=== PATIENT | male | born 1960 | race Caucasian/White ===

== ENCOUNTER 2016-08-20 17:54 | Emergency (ER) | payer BC ==
[2016-08-20] MEDS ORDERED: ONDANSETRON 4 MG TAB.RAPDIS PO ONE (18:50)
[2016-08-20] MEDS ORDERED: MORPHINE SULFATE 10 MG/ML INJ IM ONE (18:51)
--- NOTE | 2016-08-20 18:54 | ER Document Report ---
ED Medical Screen (RME) - General Chief Complaint: Abdominal Pain Stated Complaint: STOMACH PAIN Notes: Patient says that she's been experiencing severe mid abdominal pain since about 7 AM this morning. He had a bowel movement about 5 AM and felt well at that time, but then experienced the onset of this pain primarily in the mid abdomen area which has persisted all day. He's had a couple of episodes where his been passing some gas but that has not helped. Has not had any vomiting. Has not seen blood in his stools. May have had slight fever. Sweating. Patient has had gastric bypass surgery in the year 2007. Has not had any complications of that procedure. No other abdominal surgical procedures. Cannot take NSAIDS. Patient is allergic to Aleve. TRAVEL OUTSIDE OF THE [place] IN LAST 30 DAYS: No - Related Data Allergies/Adverse Reactions: acetaminophen [From Darvocet-N 100] Allergy (Mild, Verified 08/20/16 18:14) Hives propoxyphene napsylate [From Darvocet-N 100] Allergy (Mild, Verified 08/20/16 18 :14) Hives naproxen [From Aleve] Allergy (Verified 08/20/16 18:44) Home Medications: Current Home Medications Levothyroxine Sodium 100 mcg PO DAILY 08/20/16 [History] Past Medical History Renal/ Medical History: Denies: Hx Peritoneal Dialysis Past Surgical History: Reports: Hx Orthopedic Surgery - knee, shoulder - Immunizations Hx Diphtheria, Pertussis, Tetanus Vaccination: Yes Physical Exam - Vital signs Vitals: Temp Pulse Resp BP Pulse Ox 99.9 F 112 H 20 144/88 H 96 08/20/16 18:12 08/20/16 18:12 08/20/16 18:12 08/20/16 18:12 08/20/16 18:12 Course - Vital Signs Vital signs: Temp Pulse Resp BP Pulse Ox 99.9 F 112 H 20 144/88 H 96 08/20/16 18:12 08/20/16 18:12 08/20/16 18:12 08/20/16 18:12 08/20/16 18:12
[2016-08-20] MEDS ORDERED: MORPHINE SULFATE 10 MG/ML INJ IV PRN (19:30)
[2016-08-20] MEDS ORDERED: NORMAL SALINE 1000 ML 1,000 ML IV ONE (19:30)
[2016-08-20 19:31] LABS: ABSOLUTE EOSINOPHILS # (AUTO) 0.1 10^3/uL (0.0-0.6); ABSOLUTE LYMPHOCYTES (AUTO) 0.6 10^3/uL (0.5-4.7); ABSOLUTE MONOCYTES (AUTO) 0.4 10^3/uL (0.1-1.4); ABSOLUTE NEUT (AUTO) 6.4 10^3/uL (1.7-8.2); BASOPHILS % (AUTO) 0.3 % (0-2); EOSINOPHILS % (AUTO) 0.9 % (0-6); HEMATOCRIT 49.8 % (37.9-51.0); HEMOGLOBIN 17.2 g/dL (13.5-17.0); HGB HCT DIFFERENCE 1.8; LYMPHOCYTES % (AUTO) 7.7 % (13-45); MEAN CORPUSCULAR HEMOGLOBIN 31.4 pg (27.0-33.4); MEAN CORPUSCULAR HGB CONC 34.6 g/dL (32.0-36.0); MEAN CORPUSCULAR VOLUME 91 fl (80-97); MONOCYTES % (AUTO) 5.4 % (3-13); RED BLOOD COUNT 5.49 10^6/uL (4.35-5.55); RED CELL DISTRIBUTION WIDTH 13.7 % (11.5-14.0); SEGMENTED NEUTROPHILS % (AUTO) 85.7 % (42-78); WHITE BLOOD COUNT 7.4 10^3/uL (4.0-10.5)
--- NOTE | 2016-08-20 19:32 | ER Document Report ---
ED General - General Chief Complaint: Abdominal Pain Stated Complaint: STOMACH PAIN Notes: Patient is a 56-year-old male without past medical history who presents with 12 hours of progressively worsening lower abdominal pain. He does describe the pain as a diffuse, throbbing, aching pain. Nothing improves or worsens this pain. No history of similar symptoms in the past. He has a prior surgical history of gastric bypass surgery but has had no complications from that surgery. Denies any testicular tenderness, dysuria, hematuria, vomiting or diarrhea. Has passed flatus and had a bowel movement but this did not provide any symptomatic relief. He has not seen his primary care doctor regarding today 's concerns. He has not had a fever. TRAVEL OUTSIDE OF THE [place] IN LAST 30 DAYS: No - Related Data Allergies/Adverse Reactions: acetaminophen [From Darvocet-N 100] Allergy (Mild, Verified 08/20/16 18:14) Hives propoxyphene napsylate [From Darvocet-N 100] Allergy (Mild, Verified 08/20/16 18 :14) Hives naproxen [From Aleve] Allergy (Verified 08/20/16 18:44) Home Medications: Current Home Medications Levothyroxine Sodium 100 mcg PO DAILY 08/20/16 [History] Past Medical History - General Information source: Patient - Social History Smoking Status: Never Smoker Frequency of alcohol use: None Drug Abuse: None Lives with: Spouse/Significant other Family History: Reviewed & Not Pertinent Renal/ Medical History: Denies: Hx Peritoneal Dialysis Past Surgical History: Reports: Hx Orthopedic Surgery - knee, shoulder - Immunizations Hx Diphtheria, Pertussis, Tetanus Vaccination: Yes Review of Systems - Review of Systems Notes: Constitutional: Negative for fever. HENT: Negative for sore throat. Eyes: Negative for visual changes. Cardiovascular: Negative for chest pain. Respiratory: Negative for shortness of breath. Gastrointestinal: Positive for abdominal pain, negative for vomiting or diarrhea. Genitourinary: Negative for dysuria. Musculoskeletal: Negative for back pain. Skin: Negative for rash. Neurological: Negative for headaches, weakness or numbness. 10 point ROS negative except as marked above and in HPI. Physical Exam - Vital signs Vitals: Temp Pulse Resp BP Pulse Ox 99.9 F 112 H 20 144/88 H 96 08/20/16 18:12 08/20/16 18:12 08/20/16 18:12 08/20/16 18:12 08/20/16 18:12 Interpretation: Tachycardic Notes: PHYSICAL EXAMINATION: GENERAL: Appears uncomfortable but in no acute distress HEAD: Atraumatic, normocephalic. EYES: Pupils equal round and reactive to light, extraocular movements intact, sclera anicteric, conjunctiva are normal. ENT: nares patent, oropharynx clear without exudates. Moderately dry mucous membranes. NECK: Normal range of motion, supple without lymphadenopathy LUNGS: Breath sounds clear to auscultation bilaterally and equal. No wheezes rales or rhonchi. HEART: Regular tachycardia without murmurs ABDOMEN: Soft, diffuse tenderness to the lower abdomen with rebound in both the right lower and left lower quadrant. No guarding or rigidity : No testicular tenderness, epididymal tenderness. No lesions. Positive cremasteric reflex bilaterally. EXTREMITIES: Normal range of motion, no pitting or edema. No cyanosis. NEUROLOGICAL: No focal neurological deficits. Moves all extremities spontaneously and on command. PSYCH: Normal mood, normal affect. SKIN: Warm, Dry, normal turgor, no rashes or lesions noted. Course - Re-evaluation Re-evalutation: 08/20/16 19:31 Patient presents with 12 hours of progressively worsening diffuse lower abdominal pain. Abdominal exam with several concerning findings including focal tenderness to the right and left lower quadrants with rebound tenderness. Patient also has voluntary guarding but no rigidity. He is tachycardic, somewhat diaphoretic and is ill in appearance. He has no prior medical history other than hypothyroidism and history of a gastric bypass surgery. His clinical history does not appear consistent with an acute biliary processes he has no focal upper abdominal tenderness. Likewise pancreatitis seems unlikely given absence of any focal epigastric tenderness. He has no flank tenderness or dysuria to suggest nephrolithiasis or pyelonephritis. He has no vomiting has continued to pass flatus making a bowel obstruction unlikely. Will proceed with CT abdomen and pelvis to better evaluate for diverticulosis versus acute appendicitis with primary concern being a possible perforation given his degree of pain. Will provide IV fluids, antiemetics, pain control. 08/20/16 21:35 CT is read as diverticulosis without evidence of diverticulitis but given that patient has such significant pain on exam will treat empirically as diverticulitis as his clinical history does suggest this. CT is otherwise normal. Repeat abdominal exam now much improved after pain control. He continues to be with mild left lower quadrant abdominal tenderness. He has no focal upper quadrant tenderness to suggest biliary pathology as discussed earlier.At this time will discharge with return precautions and follow-up recommendations. Verbal discharge instructions given a the bedside and opportunity for questions given. Medication warnings reviewed. Patient is in agreement with this plan and has verbalized understanding of return precautions and the need for primary care follow-up in the next 24-72 hours. - Vital Signs Vital signs: Temp Pulse Resp BP Pulse Ox 98.2 F 106 H 18 129/81 H 93 08/20/16 20:23 08/20/16 22:19 08/20/16 22:19 08/20/16 22:01 08/20/16 22:19 - Laboratory Result Diagrams: 08/20/16 18:55 08/20/16 18:55 Laboratory results interpreted by me: 08/20/16 08/20/16 18:55 18:55 Hgb 17.2 H Seg Neutrophils % 85.7 H Lymphocytes % 7.7 L BUN 25 H Glucose 112 H - Diagnostic Test Radiology reviewed: Reports reviewed - EKG Interpretation by Me Additional EKG results interpreted by me: 08/21/16 03:03 Sinus rhythm. Rate 99. No ST elevations or depressions. QTC is 437 Discharge - Discharge Clinical Impression: Lower abdominal pain Diverticulitis Qualifiers: Diverticulitis site: large intestine Diverticulitis bleeding: without bleeding Diverticulitis complication: without perforation or abscess Qualified Code(s): K57.32 - Diverticulitis of large intestine without perforation or abscess without bleeding Condition: Good Disposition: HOME, SELF-CARE Additional Instructions: You were seen today for focal pain in your left lower quadrant. Your labs, exam , and imaging suggest a diagnosis of diverticulitis. This is an inflammation of a part of your colon. You are being started on antibiotics to treat this infection and inflammation. Please take all of them as directed and complete them even if your symptoms resolve. Please follow-up with your primary care physician within the next 48 hours. Return to the emergency department immediately if you develop worsening pain, persistent vomiting, began having bloody stools, develop a fever of greater than 101F, or have any other symptoms that are concerning to you. Prescriptions: Ciprofloxacin HCl [Cipro 500 mg Tablet] 500 mg PO BID #20 tablet Metronidazole [Flagyl 500 mg Tablet] 500 mg PO Q6H #40 tablet Referrals: JOHN HOOPER MD [Primary Care Provider] - Follow up as needed
[2016-08-20 19:41] LABS: APPEARANCE,URINE CLEAR; BILIRUBIN,URINE NEGATIVE (NEGATIVE); GLUCOSE, URINE NEGATIVE (NEGATIVE); KETONES,URINE NEGATIVE (NEGATIVE); LEUKOCYTE ESTERASE,URINE NEGATIVE (NEGATIVE); NITRITE,URINE NEGATIVE (NEGATIVE); PROTEIN,URINE NEGATIVE (NEGATIVE); URINE SPECIFIC GRAVITY 1.023; UROBILINOGEN,URINE NEGATIVE mg/dL (<2.0)
[2016-08-20 19:44] LABS: ALANINE AMINOTRANSFERASE 32 U/L (21-72); ALBUMIN 4.8 g/dL (3.5-5.0); ALKALINE PHOSPHATASE 70 U/L (38-126); ANION GAP 15 (5-19); ASPARTATE AMINO TRANSFERASE 27 U/L (17-59); BILIRUBIN,DIRECT 0.3 mg/dL (0.0-0.4); BILIRUBIN,TOTAL 0.9 mg/dL (0.2-1.3); BLOOD UREA NITROGEN 25 mg/dL (7-20); CALCIUM 9.4 mg/dL (8.4-10.2); CARBON DIOXIDE 25 mmol/L (22-30); CHLORIDE 101 mmol/L (98-107); CREATININE RESULT 0.84 mg/dL (0.52-1.25); GLUCOSE 112 mg/dL (75-110); LIPASE 63.7 U/L (23-300); POTASSIUM 4.4 mmol/L (3.6-5.0); SODIUM 140.9 mmol/L (137-145); TOTAL PROTEIN 7.6 g/dL (6.3-8.2)
[2016-08-20] MEDS ORDERED: CIPROFLOXACIN HCL 500 MG TABLET PO ONE (21:36)
[2016-08-20] MEDS ORDERED: METRONIDAZOLE 500 MG TABLET PO ONE (21:36)
[2016-08-20] MEDS ORDERED: HYDROCODONE/ACETAMINOPHEN 5-325 MG 6 TAB/DSPK PO PRN (21:36)
[2016-08-20] MEDS ORDERED: ONDANSETRON ODT 4 MG TAB (6 TAB/DSPK) PO PRN (21:37)
[2016-08-20 22:33] VITALS: BP 129/81
--- NOTE | 2016-08-21 10:46 | EKG REPORT ---
SEVERITY:- BORDERLINE ECG - SINUS RHYTHM BORDERLINE T ABNORMALITIES, INFERIOR LEADS : Confirmed by: Edna Eid 21-Aug-2016 10:46:11
== END 2016-08-20 22:36 | disposition home or self-care (01) ==
LOC: ER 17:54
DX: K57.32 Diverticulitis of large intestine without perforation or abscess without bleeding (principal); R10.30 Lower abdominal pain, unspecified; R10.9 Unspecified abdominal pain
CPT/HCPCS: 93005; 99285; 96372; 96374; 36415; 83690; 85025; 80053; 81001; 84484; 71010; 74177; 93010; S0119; J2270; J7030